=== PATIENT | female | born 1995 | race African-American/Black ===

== ENCOUNTER 2024-03-18 20:01 | Emergency (ER) | payer SELFPAY ==
[~2024-03-18] VITALS: Ht 160 cm; Wt 55.0 kg
[2024-03-18 20:24] VITALS: BP 122/83; PULSE 95; RESP 18; TEMP 98.3; O2SAT 100
[2024-03-18] MEDS ORDERED: ACETAMINOPHEN 500MG TABLET PO ONE (21:00)
== END 2024-03-18 22:01 | disposition left against medical advice (07) ==
LOC: ER 20:01
DX: S09.8XXA Other specified injuries of head, initial encounter (principal); M54.2 Cervicalgia; F41.9 Anxiety disorder, unspecified; X58.XXXA Exposure to other specified factors, initial encounter; Y93.9 Activity, unspecified; Y92.89 Other specified places as the place of occurrence of the external cause; Y99.8 Other external cause status
CPT/HCPCS: 99281